=== PATIENT | female | born 1980 | race Hispanic/Latino ===

== ENCOUNTER 2017-04-24 04:35 | Emergency (ER) | payer OTHER ==
[2017-04-24 05:05] VITALS: BP 138/99
--- NOTE | 2017-04-24 05:44 | Emergency Department Report ---
HPI - General Chief Complaint: Pain General Time Seen by Provider: 04/24/17 05:38 - HPI HPI: Patient is a 37-year-old female who presents to ED's complaining of left-sided rib pain 2 weeks. Patient says about 2 weeks ago she tripped over her kids toys and fell and hit her rib/chest on the fireplace. Patient states since then she is some pain on her left rib underneath(region. Patient states pain is throbbing and aching in nature. Patient states pain is aggravated by stretching or raising left hand and worse with coughing. Patient states no mention of cycles due to bilateral tubal ligation and she also has nextplanon insert. She denies any bruising, difficulty breathing, fever, chills, nausea, vomiting ED Past Medical Hx - Past Medical History Previous Medical History?: Yes Hx Headaches / Migraines: Yes - Surgical History Past Surgical History?: Yes Additional Surgical History: x 2, tubal - Social History Smoking Status: Never Smoker Substance Use Type: None - Medications Home Medications: Home Medications Medication Instructions Recorded Confirmed Last Taken Type Vit No.78/Iron/FA 06/27/13 07/19/13 07/16/13 08:00 History [Prenatabs FA Tablet] Promethazine [Phenergan] 25 mg NE Q6HR PRN #20 supp.rect 06/29/13 07/19/13 Unknown Rx Fluticasone Propionate [Flonase] 1 spray INNOSTRIL BID 07/19/13 07/19/13 09:00 History Ondansetron [Zofran Odt] 4 mg PO Q6H PRN #20 tab.rapdis 07/19/13 Unknown Rx Potassium Chloride [K-Dur] 20 meq PO QDAY #4 tablet 07/19/13 Unknown Rx SUMAtriptan SUCCINATE [Imitrex] 1 tab PO BID PRN #9 tablet 01/30/16 Unknown Rx Baclofen [Lioresal] 10 mg PO TID #30 tab 04/24/17 Unknown Rx Methocarbamol [Robaxin TAB] 750 mg PO BID #20 tab 04/24/17 Unknown Rx ED Review of Systems ROS: Stated complaint: MUSCEL PAIN, Other details as noted in HPI Constitutional: denies: chills, fever Eyes: denies: eye pain, eye discharge, vision change ENT: denies: ear pain, throat pain Respiratory: denies: cough, shortness of breath, wheezing Cardiovascular: denies: chest pain, palpitations Endocrine: no symptoms reported Gastrointestinal: denies: abdominal pain, nausea, diarrhea Genitourinary: denies: urgency, dysuria, discharge Musculoskeletal: denies: back pain, joint swelling, arthralgia Skin: denies: rash, lesions Neurological: denies: headache, weakness, paresthesias Psychiatric: denies: anxiety, depression Hematological/Lymphatic: denies: easy bleeding, easy bruising Physical Exam - Physical Exam Vital Signs: Vital Signs 04/24/17 04:40 Temperature 98.6 F Pulse Rate 103 H Respiratory 18 Rate Blood Pressure 138/99 [Right] O2 Sat by Pulse 99 Oximetry Physical Exam: GENERAL: Alert and oriented x3, no apparent distress, Normal Gait, atraumatic. HEAD: Head is normocephalic and a-traumatic. NECK: Supple. Non edematous, . No lymphadenopathy or thyromegaly. No C-spine tenderness LUNGS: Symetrical with respiration, No wheezing, no rales or crackles, CTAB. No flail chest with inspiration or expiration, no ecchymoses no bruising seen HEART: S1, S2 present, regular rate and rhythm without murmur, no rubs, no gallops. Mild tenderness to palpation of the left side. ABDOMEN: No organomegaly was noted,Positive bowel sounds, soft, and non- distended. . Nontender to palpation on all Quadrants, NO CVA tenderness. SKIN: Warm and dry, No lesions, No ulceration or induration present. ED Course Vital Signs 04/24/17 04:40 Temperature 98.6 F Pulse Rate 103 H Respiratory 18 Rate Blood Pressure 138/99 [Right] O2 Sat by Pulse 99 Oximetry ED Medical Decision Making - Radiology Data Radiology results: report reviewed, image reviewed FINAL REPORT EXAM: XR RIBS UNILAT 2V LT HISTORY: fall/rib pain TECHNIQUE: Left ribs two views PRIORS: None. FINDINGS: There is no acute fracture seen. There is no focal left rib lesion identified. There is no left pneumothorax. IMPRESSION: There is no acute abnormality identified. Transcribed By: LORI Dictated By: MANSOOR GUEVARA MD Electronically Authenticated By: MANSOOR GUEVARA MD Signed Date/Time: 04/24/17 0552 - Medical Decision Making 37-year-old female presents with myalgia of the thorax ED course: Rib detail x-ray ordered. CBC results above Discussed with the patient findings from the x-ray the patient will go home on medication for muscle pain Discussed to follow up with her primary care physician. Discussed with the patient if any new or worsening symptoms to return to ED. Vital signs are normal patient is no acute distress. Critical care attestation.: If time is entered above; I have spent that time in minutes in the direct care of this critically ill patient, excluding procedure time. ED Disposition Clinical Impression: Myalgia Fall Qualifiers: Encounter type: initial encounter Qualified Code(s): W19.XXXA - Unspecified fall, initial encounter Disposition: TO HOME OR SELFCARE Is pt being admited?: No Does the pt Need Aspirin: No Condition: Stable Instructions: Trigger Point Pain (ED), Musculoskeletal Pain (ED), Heat Pack Application (ED) Prescriptions: Baclofen [Lioresal] 10 mg PO TID #30 tab Methocarbamol [Robaxin TAB] 750 mg PO BID #20 tab Referrals: PRIMARY CARE, [Primary Care Provider] - 3-5 Days [facility] [Outside] - 3-5 Days [facility] [Outside] - 3-5 Days [facility] [Outside] - 3-5 Days Forms: Work/School Release Form(ED) Time of Disposition: 06:11
--- NOTE | 2017-04-24 05:58 | XRay Report ---
FINAL REPORT EXAM: XR RIBS UNILAT 2V LT HISTORY: fall/rib pain TECHNIQUE: Left ribs two views PRIORS: None. FINDINGS: There is no acute fracture seen. There is no focal left rib lesion identified. There is no left pneumothorax. IMPRESSION: There is no acute abnormality identified.
== END 2017-04-24 06:27 | disposition home or self-care (01) ==
LOC: ED 04:35
DX: R07.81 Pleurodynia (principal); G43.909 Migraine, unspecified, not intractable, without status migrainosus; W01.198A Fall on same level from slipping, tripping and stumbling with subsequent striking against other object, initial encounter; Y93.89 Activity, other specified; Y99.8 Other external cause status; Y92.89 Other specified places as the place of occurrence of the external cause
CPT/HCPCS: 99283

== ENCOUNTER 2018-05-15 08:18 | Emergency (ER) | payer OTHER ==
[2018-05-15 08:46] VITALS: BP 128/80
[2018-05-15] MEDS ORDERED: NACL 0.9% 1000 ML 1,000 ML IV ONE (08:47)
[2018-05-15 08:58] LABS: Basophils # (Auto) 0.1 K/mm3 (0.0-0.1); Basophils % (Auto) 1.9 % (0.0-1.8); Eosinophils # (Auto) 0.4 K/mm3 (0.0-0.4); Eosinophils % (Auto) 8.4 % (0.0-4.3); Hematocrit 38.4 % (30.3-42.9); Hemoglobin 13.1 gm/dl (10.1-14.3); Lymphocytes # (Auto) 1.3 K/mm3 (1.2-5.4); Lymphocytes % (Auto) 27.9 % (13.4-35.0); Mean Corpuscular HGB Conc 34 % (30-34); Mean Corpuscular Hemoglobin 30 pg (28-32); Mean Corpuscular Volume 89 fl (79-97); Monocytes # (Auto) 0.4 K/mm3 (0.0-0.8); Platelet Count 439 K/mm3 (140-440); Red Blood Count 4.35 M/mm3 (3.65-5.03); Red Cell Distribution Width 13.5 % (13.2-15.2)
[2018-05-15 09:19] LABS: Alanine Aminotransferase 8 units/L (7-56); BUN/Creatinine Ratio 23; Blood Urea Nitrogen 14 mg/dL (7-17); Calcium 8.8 mg/dL (8.4-10.2); Hemolysis Index 6
[2018-05-15 09:34] LABS: Bacteria,Urine 1+ /HPF (Negative); Bilirubin,Urine NEG (Negative); Blood,Urine LG (Negative); Color,Urine Yellow (Yellow); Mucus,Urine FEW /HPF; Urobilinogen,Urine < 2.0 mg/dL (<2.0)
[2018-05-15 09:35] LABS: RBC,Urine > 182.0 /HPF (0.0-6.0)
[2018-05-15] MEDS ORDERED: MORPHINE IV ONE (10:18)
[2018-05-15] MEDS ORDERED: ZOFRAN IV ONE (10:18)
[2018-05-15] MEDS ORDERED: TORADOL IV ONE (10:18)
--- NOTE | 2018-05-15 11:02 | Emergency Department Report ---
ED Abdominal Pain HPI - General Chief Complaint: Abdominal Pain Stated Complaint: KIDNEYSTONES/INFECTION Time Seen by Provider: 05/15/18 10:06 Source: patient Mode of arrival: Ambulatory Limitations: No Limitations - History of Present Illness Initial Comments: This is a 38-year-old female nontoxic, well nourished in appearance, no acute signs of distress presents to the ED with c/o of nausea and vomiting and left flank pain 1 day. Patient describes vomiting as food content and yellow gastric acid. Patient describes flank pain as cramping and aching with level of 3/10 that radiates to left upper abdomen. Patient denies chest pain, short of breath, fever, chills, headache, stiff neck, numbness or tingling. Patient deneis any pelvic pain. Patient denies any diarrhea or constipation. Patient denies any vaginal bleeding or discharge. Patient denies any recent travels. Patient denies any allergies. MD Complaint: abdominal pain, flank pain -: days(s) (1) Location: L flank Radiation: LUQ Migration to: no migration Severity: mild Severity scale (0 -10): 3 Quality: cramping, aching Consistency: constant Improves With: nothing Worsens With: nothing Associated Symptoms: nausea, vomiting. denies: diarrhea, fever, chills, constipation, dysuria, hematemesis, hematochezia, melena, hematuria, anorexia, syncope - Related Data Home Medications Medication Instructions Recorded Confirmed Last Taken Vit,Calc78/Iron/Folic 06/27/13 07/19/13 07/16/13 08:00 [Prenatabs FA Tablet] Fluticasone Propionate [Flonase] 1 spray INNOSTRIL BID 07/19/13 07/19/13 09:00 Previous Rx's Medication Instructions Recorded Last Taken Type Promethazine [Phenergan] 25 mg [place] Q6HR PRN #20 supp.rect 06/29/13 Unknown Rx Ondansetron [Zofran Odt] 4 mg PO Q6H PRN #20 tab.rapdis 07/19/13 Unknown Rx Potassium Chloride [K-Dur] 20 meq PO QDAY #4 tablet 07/19/13 Unknown Rx SUMAtriptan SUCCINATE [Imitrex] 1 tab PO BID PRN #9 tablet 01/30/16 Unknown Rx Baclofen [Lioresal] 10 mg PO TID #30 tab 04/24/17 Unknown Rx Methocarbamol [Robaxin TAB] 750 mg PO BID #20 tab 04/24/17 Unknown Rx Acetaminophen/Codeine [Tylenol 1 tab PO Q6H PRN #6 tab 05/15/18 Unknown Rx /Codeine # 3 tab] Ibuprofen [Motrin] 600 mg PO Q8H PRN #30 tablet 05/15/18 Unknown Rx Sulfamethoxazole/Trimethoprim 1 each PO BID #14 tablet 05/15/18 Unknown Rx [Bactrim DS TAB] Allergies Allergy/AdvReac Type Severity Reaction Status Date / Time No Known Allergies Allergy Verified 07/19/13 13:59 ED Review of Systems ROS: Stated complaint: KIDNEYSTONES/INFECTION Other details as noted in HPI Constitutional: denies: chills, fever Eyes: denies: eye pain, eye discharge, vision change ENT: denies: ear pain, throat pain Respiratory: denies: cough, shortness of breath, wheezing Cardiovascular: denies: chest pain, palpitations Endocrine: no symptoms reported Gastrointestinal: abdominal pain, nausea, vomiting. denies: diarrhea, constipation Genitourinary: denies: urgency, dysuria, discharge Musculoskeletal: denies: back pain, joint swelling, arthralgia Skin: denies: rash, lesions Neurological: denies: headache, weakness, paresthesias Psychiatric: denies: anxiety, depression Hematological/Lymphatic: denies: easy bleeding, easy bruising ED Past Medical Hx - Past Medical History Previous Medical History?: Yes Hx Hypertension: Yes Hx Headaches / Migraines: Yes Hx Kidney Stones: Yes Hx Psychiatric Treatment: Yes (anxiety) - Surgical History Past Surgical History?: Yes Additional Surgical History: x 2, tubal - Social History Smoking Status: Current Some Day Smoker Substance Use Type: None - Medications Home Medications: Home Medications Medication Instructions Recorded Confirmed Last Taken Type Vit,Calc78/Iron/Folic 06/27/13 07/19/13 07/16/13 08:00 History [Prenatabs FA Tablet] Promethazine [Phenergan] 25 mg [place] Q6HR PRN #20 supp.rect 06/29/13 07/19/13 Unknown Rx Fluticasone Propionate [Flonase] 1 spray INNOSTRIL BID 07/19/13 07/19/13 09:00 History Ondansetron [Zofran Odt] 4 mg PO Q6H PRN #20 tab.rapdis 07/19/13 Unknown Rx Potassium Chloride [K-Dur] 20 meq PO QDAY #4 tablet 07/19/13 Unknown Rx SUMAtriptan SUCCINATE [Imitrex] 1 tab PO BID PRN #9 tablet 01/30/16 Unknown Rx Baclofen [Lioresal] 10 mg PO TID #30 tab 04/24/17 Unknown Rx Methocarbamol [Robaxin TAB] 750 mg PO BID #20 tab 04/24/17 Unknown Rx Acetaminophen/Codeine [Tylenol 1 tab PO Q6H PRN #6 tab 05/15/18 Unknown Rx /Codeine # 3 tab] Ibuprofen [Motrin] 600 mg PO Q8H PRN #30 tablet 05/15/18 Unknown Rx Sulfamethoxazole/Trimethoprim 1 each PO BID #14 tablet 05/15/18 Unknown Rx [Bactrim DS TAB] ED Physical Exam - General Limitations: No Limitations General appearance: alert, in no apparent distress - Head Head exam: Present: atraumatic, normocephalic - Eye Eye exam: Present: normal appearance Pupils: Present: normal accommodation - ENT ENT exam: Present: normal exam, mucous membranes moist - Neck Neck exam: Present: normal inspection, full ROM. Absent: tenderness, meningismus, lymphadenopathy - Respiratory Respiratory exam: Present: normal lung sounds bilaterally. Absent: respiratory distress, wheezes, rales, rhonchi, stridor, chest wall tenderness, accessory muscle use, decreased breath sounds, prolonged expiratory - Cardiovascular Cardiovascular Exam: Present: regular rate, normal rhythm, tachycardia, normal heart sounds. Absent: bradycardia, irregular rhythm, systolic murmur, diastolic murmur, rubs, gallop - GI/Abdominal GI/Abdominal exam: Present: soft, normal bowel sounds. Absent: distended, tenderness, guarding, rebound, rigid, diminished bowel sounds - Expanded GI/Abdominal Exam Expanded GI/Abdominal exam: Absent: psoas sign, obturator sign, heel tap sign, Waller's sign, Rovsing's sign, tenderness at Mcburney's Point, ascites - Rectal Rectal exam: Present: deferred - Extremities Exam Extremities exam: Present: normal inspection, full ROM, normal capillary refill. Absent: tenderness - Back Exam Back exam: Present: normal inspection, full ROM, tenderness (L flank). Absent: CVA tenderness (R), CVA tenderness (L), muscle spasm, paraspinal tenderness, vertebral tenderness, rash noted - Neurological Exam Neurological exam: Present: alert, oriented X3, normal gait - Psychiatric Psychiatric exam: Present: normal affect, normal mood - Skin Skin exam: Present: warm, dry, intact, normal color. Absent: rash ED Course Vital Signs 05/15/18 05/15/18 08:39 10:56 Temperature 98 F Pulse Rate 112 H Respiratory 16 16 Rate Blood Pressure 128/80 O2 Sat by Pulse 100 Oximetry - Reevaluation(s) Reevaluation #1: 05/15/18 11:01 Patient is speaking in full sentences with no signs of distress noted. ED Medical Decision Making - Lab Data Result diagrams: 05/15/18 08:49 05/15/18 08:49 - Medical Decision Making This is a 38-year-old female that presents with flank pain, n/v, and abdominal pain. Patient is stable and was examined by me. There is slight flank tenderness. Negative signs of symptoms of appendicitis. Labs obtained. UA obtained. CT scan ordered but patient refused,. Patient was educated about risk factors and further evaluation the patient refused to sign AMA form. I did give patient 1 L of normal saline, morphine and Toradol which patient states symptoms are progressive side. Patient stated that her family member drive the patient home after discharge. Vital signs are stable prior to discharge. Patient was notified of strict precautions of appendicitis symptoms and urinary stone obstruction and to return to the ED if symptoms occurs as soon as possible. Patient was also instructed to Follow-up with a primary care doctor in 3-5 days or if symptoms worsen and continue return to emergency room as soon as possible. At time of signing AMA form, the patient does not seem toxic or ill in appearance. No acute signs of distress noted. Patient agrees to treatment plan of care. No further questions noted by the patient. Critical care attestation.: If time is entered above; I have spent that time in minutes in the direct care of this critically ill patient, excluding procedure time. ED Disposition Clinical Impression: Flank pain Abdominal pain Qualifiers: Abdominal location: left upper quadrant Qualified Code(s): R10.12 - Left upper quadrant pain UTI (urinary tract infection) Qualifiers: Urinary tract infection type: site unspecified Hematuria presence: with hematuria Qualified Code(s): N39.0 - Urinary tract infection, site not specified Nausea & vomiting Qualifiers: Vomiting type: unspecified Vomiting Intractability: non-intractable Qualified Code(s): R11.2 - Nausea with vomiting, unspecified Disposition: - LEFT AGAINST MED ADVICE Is pt being admited?: No Does the pt Need Aspirin: No Condition: Undetermined Instructions: Acetaminophen/Codeine (By mouth), Abdominal Pain (ED) Additional Instructions: Follow-up with a primary care doctor in 3-5 days or if symptoms worsen and continue return to emergency room as soon as possible. Do not operate any machinery while taking Tylenol with codeine as this may cause drowsiness. Prescriptions: Acetaminophen/Codeine [Tylenol /Codeine # 3 tab] 1 tab PO Q6H PRN #6 tab PRN Reason: Pain , Severe (7-10) Ibuprofen [Motrin] 600 mg PO Q8H PRN #30 tablet PRN Reason: Pain Sulfamethoxazole/Trimethoprim [Bactrim DS TAB] 1 each PO BID #14 tablet Referrals: PRIMARY MD NATIVIDAD [Primary Care Provider] - 3-5 Days DANITZA MAXWELL MD [Staff Physician] - 3-5 Days [facility] [place] [facility] [place]Outside] - 3-5 Days [facility] [Outside] - 3-5 Days Forms: AMA Form
[2018-05-15 11:22] LABS: HCG Qualitative,Urine Negative (Negative)
--- NOTE | 2018-05-15 13:19 | Cat Scan Report ---
FINAL REPORT EXAM: CT ABDOMEN PELVIS W CON HISTORY: flank pain TECHNIQUE: CT of the abdomen and pelvis with IV contrast. Coronal and sagittal reconstructed imaging provided. PRIORS: None currently available. FINDINGS: ABDOMEN: Liver: Heterogeneous low attenuation. No distinct lesions. No suspicious enhancements. Gallbladder: Thick walled. Hyperemic. A distinct stones not clearly evident. Dilated left intrahepatic and common bile duct. Distinct ductal stone or lesion is not identified. Distal half of the stomach demonstrates mild wall prominence. No perforation. No stranding. Spleen, pancreas, and adrenals are unremarkable. Kidneys: Some cortical thinning or scarring to the right kidney. [id number] right hydronephrosis. Right UPJ stone measures 3.1 x 1.6 cm and the larger stone just inferior measures 7.7 x 4.7 mm. No other ureteral stones. Left kidney is unremarkable. There is no abdominal aortic aneurysm. No dissection. IVC is unremarkable. There is no periaortic or retroperitoneal adenopathy or mass. [id number] stool. No wall thickening or inflammatory changes. Terminal ileum is unremarkable. The appendix is not identified. There are no pericecal inflammatory changes. Small bowel loops are unremarkable. No obstructive pattern. No free air. No free fluid. Mesentery is unremarkable. Fat-containing umbilical hernia without strangulation. PELVIS: Limited CT images of the uterus are unremarkable. Bladder is unremarkable. No wall thickening. No stone. There is no pelvic mass or adenopathy. Inguinal regions are unremarkable. Bones: No suspicious osseous lesions on this limited examination of the skeleton. Metastatic disease better evaluated with bone scan. IMPRESSION: Heterogeneous liver may be related to hepatocellular disease or fatty infiltration. Gallbladder findings are suspicious for possible cholecystitis. Correlation with gallbladder ultrasound may be helpful if clinically indicated. Nonspecific thickening of the distal half of the stomach wall. Findings may represent a mild gastritis or gastric ulcer. No perforation. No abscess. Obstructing right UPJ stones. Cortical thinning and scarring to the right kidney identified.
== END 2018-05-15 12:16 | disposition left against medical advice (07) ==
LOC: ED 08:18
DX: N39.0 Urinary tract infection, site not specified (principal); I10 Essential (primary) hypertension; G43.909 Migraine, unspecified, not intractable, without status migrainosus; F17.200 Nicotine dependence, unspecified, uncomplicated
CPT/HCPCS: 36415; 74177; 80053; 81001; 81025; 85025; 96361; 96374; 96375; 99284; J1885; J2270; J2405; J7030; Q9967

== ENCOUNTER 2019-06-25 08:42 | Emergency (ER) | payer SELFPAY ==
[2019-06-25 08:47] VITALS: BP 162/96
--- NOTE | 2019-06-25 09:19 | Emergency Department Report ---
- General Chief complaint: Pain General Stated complaint: SHOULDER PAIN/RASH Time Seen by Provider: 06/25/19 09:07 Source: patient Mode of arrival: Ambulatory Limitations: No Limitations - History of Present Illness Initial comments: Patient is a 39-year-old female presents to emergency room with complaints of a rash to the left shoulder blade that began 2 days ago. Patient describes the pain as a tingling and burning sensation, "pins and needles". She states she also feels like she is having muscle spasms in the left shoulder blade region. She states that she has been using warm compresses over the area. she denies any fall or injury, numbness, weakness, or any other symptoms. Denies anyone else with a rash. States she has a past medical history of migraines and takes gabapentin and baclofen. Denies any allergies medications. States she is currently on her menstrual cycle. - Related Data Home Medications Medication Instructions Recorded Confirmed Last Taken Vit,Calc78/Iron/Folic 06/27/13 07/19/13 07/16/13 08:00 [Prenatabs FA Tablet] Fluticasone Propionate [Flonase] 1 spray INNOSTRIL BID 07/19/13 07/19/13 07/19/13 09:00 Previous Rx's Medication Instructions Recorded Last Taken Type Promethazine [Phenergan] 25 mg NE Q6HR PRN #20 supp.rect 06/29/13 Unknown Rx Ondansetron [Zofran Odt] 4 mg PO Q6H PRN #20 tab.rapdis 07/19/13 Unknown Rx Potassium Chloride [K-Dur] 20 meq PO QDAY #4 tablet 07/19/13 Unknown Rx SUMAtriptan SUCCINATE [Imitrex] 1 tab PO BID PRN #9 tablet 01/30/16 Unknown Rx Baclofen [Lioresal] 10 mg PO TID #30 tab 04/24/17 Unknown Rx methOCARBAMOL [Robaxin TAB] 750 mg PO BID #20 tab 04/24/17 Unknown Rx Acetaminophen/Codeine [Tylenol 1 tab PO Q6H PRN #6 tab 05/15/18 Unknown Rx /Codeine # 3 tab] Ibuprofen [Motrin] 600 mg PO Q8H PRN #30 tablet 05/15/18 Unknown Rx Sulfamethoxazole/Trimethoprim 1 each PO BID #14 tablet 08/26/18 Unknown Rx [Bactrim DS TAB] Acetaminophen/Codeine [Tylenol 1 tab PO Q6HR PRN #12 tablet 06/25/19 Unknown Rx /Codeine # 3 tab] Lidocaine [Lidocaine GEL] 1 applicatio TP BID #1 gel..gram. 06/25/19 Unknown Rx Valacyclovir HCl [Valtrex] 1,000 mg PO TID 7 Days #21 tablet 06/25/19 Unknown Rx predniSONE [Deltasone] 40 mg PO QDAY 5 Days #10 tab 06/25/19 Unknown Rx Allergies Allergy/AdvReac Type Severity Reaction Status Date / Time No Known Allergies Allergy Verified 07/19/13 13:59 Abscess Boil HPI - HPI Chief Complaint: Pain General Stated Complaint: SHOULDER PAIN/RASH Time Seen by Provider: 06/25/19 09:07 Home Medications: Home Medications Medication Instructions Recorded Confirmed Last Taken Vit,Calc78/Iron/Folic 06/27/13 07/19/13 07/16/13 08:00 [Prenatabs FA Tablet] Fluticasone Propionate [Flonase] 1 spray INNOSTRIL BID 07/19/13 07/19/13 07/19/13 09:00 Previous Rx's Medication Instructions Recorded Last Taken Type Promethazine [Phenergan] 25 mg NE Q6HR PRN #20 supp.rect 06/29/13 Unknown Rx Ondansetron [Zofran Odt] 4 mg PO Q6H PRN #20 tab.rapdis 07/19/13 Unknown Rx Potassium Chloride [K-Dur] 20 meq PO QDAY #4 tablet 07/19/13 Unknown Rx SUMAtriptan SUCCINATE [Imitrex] 1 tab PO BID PRN #9 tablet 01/30/16 Unknown Rx Baclofen [Lioresal] 10 mg PO TID #30 tab 04/24/17 Unknown Rx methOCARBAMOL [Robaxin TAB] 750 mg PO BID #20 tab 04/24/17 Unknown Rx Acetaminophen/Codeine [Tylenol 1 tab PO Q6H PRN #6 tab 05/15/18 Unknown Rx /Codeine # 3 tab] Ibuprofen [Motrin] 600 mg PO Q8H PRN #30 tablet 05/15/18 Unknown Rx Sulfamethoxazole/Trimethoprim 1 each PO BID #14 tablet 05/15/18 Unknown Rx [Bactrim DS TAB] Acetaminophen/Codeine [Tylenol 1 tab PO Q6HR PRN #12 tablet 06/25/19 Unknown Rx /Codeine # 3 tab] Lidocaine [Lidocaine GEL] 1 applicatio TP BID #1 gel..gram. 06/25/19 Unknown Rx Valacyclovir HCl [Valtrex] 1,000 mg PO TID 7 Days #21 tablet 06/25/19 Unknown Rx predniSONE [Deltasone] 40 mg PO QDAY 5 Days #10 tab 06/25/19 Unknown Rx Allergies/Adverse Reactions: Allergies Allergy/AdvReac Type Severity Reaction Status Date / Time No Known Allergies Allergy Verified 07/19/13 13:59 ED Review of Systems ROS: Stated complaint: SHOULDER PAIN/RASH Other details as noted in HPI Comment: All other systems reviewed and negative ED Past Medical Hx - Past Medical History Hx Hypertension: Yes Hx Headaches / Migraines: Yes Hx Kidney Stones: Yes Hx Psychiatric Treatment: Yes (anxiety) - Surgical History Additional Surgical History: x 2, tubal - Social History Smoking Status: Current Every Day Smoker Substance Use Type: None - Medications Home Medications: Home Medications Medication Instructions Recorded Confirmed Last Taken Type Vit,Calc78/Iron/Folic 06/27/13 07/19/13 07/16/13 08:00 History [Prenatabs FA Tablet] Promethazine [Phenergan] 25 mg NE Q6HR PRN #20 supp.rect 06/29/13 07/19/13 Unknown Rx Fluticasone Propionate [Flonase] 1 spray INNOSTRIL BID 07/19/13 07/19/13 07/19/13 09:00 History Ondansetron [Zofran Odt] 4 mg PO Q6H PRN #20 tab.rapdis 07/19/13 Unknown Rx Potassium Chloride [K-Dur] 20 meq PO QDAY #4 tablet 07/19/13 Unknown Rx SUMAtriptan SUCCINATE [Imitrex] 1 tab PO BID PRN #9 tablet 01/30/16 Unknown Rx Baclofen [Lioresal] 10 mg PO TID #30 tab 04/24/17 Unknown Rx methOCARBAMOL [Robaxin TAB] 750 mg PO BID #20 tab 04/24/17 Unknown Rx Acetaminophen/Codeine [Tylenol 1 tab PO Q6H PRN #6 tab 05/15/18 Unknown Rx /Codeine # 3 tab] Ibuprofen [Motrin] 600 mg PO Q8H PRN #30 tablet 05/15/18 Unknown Rx Sulfamethoxazole/Trimethoprim 1 each PO BID #14 tablet 05/15/18 Unknown Rx [Bactrim DS TAB] Acetaminophen/Codeine [Tylenol 1 tab PO Q6HR PRN #12 tablet 06/25/19 Unknown Rx /Codeine # 3 tab] Lidocaine [Lidocaine GEL] 1 applicatio TP BID #1 gel..gram. 06/25/19 Unknown Rx Valacyclovir HCl [Valtrex] 1,000 mg PO TID 7 Days #21 tablet 06/25/19 Unknown Rx predniSONE [Deltasone] 40 mg PO QDAY 5 Days #10 tab 06/25/19 Unknown Rx ED Physical Exam - General Limitations: No Limitations General appearance: alert, in no apparent distress - Head Head exam: Present: atraumatic, normocephalic - Eye Eye exam: Present: normal appearance - ENT ENT exam: Present: mucous membranes moist - Respiratory Respiratory exam: Present: normal lung sounds bilaterally. Absent: respiratory distress, wheezes, rales, rhonchi, stridor, chest wall tenderness, accessory muscle use, decreased breath sounds, prolonged expiratory - Cardiovascular Cardiovascular Exam: Present: regular rate, normal rhythm, normal heart sounds. Absent: systolic murmur, diastolic murmur, rubs, gallop - Neurological Exam Neurological exam: Present: alert, oriented X3 - Psychiatric Psychiatric exam: Present: normal affect, normal mood - Skin Skin exam: Present: warm, dry, rash (small vesicles in dermatomal distribution directly inferior to the left scapula) ED Course Vital Signs 06/25/19 06/25/19 08:43 09:31 Temperature 98.4 F Pulse Rate 115 H 92 H Respiratory 15 16 Rate Blood Pressure 162/96 O2 Sat by Pulse 98 99 Oximetry ED Medical Decision Making - Lab Data Vital Signs 06/25/19 06/25/19 08:43 09:31 Temperature 98.4 F Pulse Rate 115 H 92 H Respiratory 15 16 Rate Blood Pressure 162/96 O2 Sat by Pulse 98 99 Oximetry - Medical Decision Making Patient is a 39-year-old female presents to emergency room with complaints of a rash to the left shoulder blade that began 2 days ago. Patient describes the pain as a tingling and burning sensation, "pins and needles". She states she also feels like she is having muscle spasms in the left shoulder blade region. She states that she has been using warm compresses over the area. she denies any fall or injury, numbness, weakness, or any other symptoms. Denies anyone else with a rash. States she has a past medical history of migraines and takes gabapentin and baclofen. Denies any allergies medications. States she is currently on her menstrual cycle. initial vitals in triage with mild tachycardia, which improved upon repeat. on examination: small vesicles in dermatomal distribution directly inferior to the left scapula. examination consistent with shingles. Patient given prescription for acyclovir, prednisone, lidocaine ointment, pain medication. Advised patient please take medication as prescribed. Do not drive or operate heavy machinery while taking pain medication. Please follow-up with a primary care doctor in the next 2-3 days. please discuss with a primary care doctor about the shingles vaccine. Return to the emergency room for any new or worsening symptoms. pt asked for refills of her gabapentin and baclofen advised pt that she needed to see a primary care provider for refill of these medications, also advised pt that she could not take baclofen and the pain medication together. pt verbalized understanding. pt given list of community resources. Critical care attestation.: If time is entered above; I have spent that time in minutes in the direct care of this critically ill patient, excluding procedure time. ED Disposition Clinical Impression: Herpes zoster Qualifiers: Herpes zoster complications: without complications Qualified Code(s): B02.9 - Zoster without complications Disposition: DC-01 TO HOME OR SELFCARE Is pt being admited?: No Does the pt Need Aspirin: No Condition: Stable Instructions: Herpes Zoster (ED) Additional Instructions: please take medication as prescribed. Do not drive or operate heavy machinery while taking pain medication. Please follow-up with a primary care doctor in the next 2-3 days. please discuss with a primary care doctor about the shingles vaccine. Return to the emergency room for any new or worsening symptoms. Prescriptions: predniSONE [Deltasone] 40 mg PO QDAY 5 Days #10 tab Lidocaine [Lidocaine GEL] 1 applicatio TP BID #1 gel..gram. Acetaminophen/Codeine [Tylenol /Codeine # 3 tab] 1 tab PO Q6HR PRN #12 tablet PRN Reason: Pain , Severe (7-10) Valacyclovir HCl [Valtrex] 1,000 mg PO TID 7 Days #21 tablet Referrals: [facility] [Provider Group] - 2-3 Days [facility] [Outside] - 2-[address] [facility] [Outside] - 2-3 Days Time of Disposition: 09:19 Print Language: MONTSERRATIAN
== END 2019-06-25 09:32 | disposition home or self-care (01) ==
LOC: ED 08:42
DX: B02.9 Zoster without complications (principal); I10 Essential (primary) hypertension; G43.909 Migraine, unspecified, not intractable, without status migrainosus; F41.9 Anxiety disorder, unspecified; F17.200 Nicotine dependence, unspecified, uncomplicated; Z79.899 Other long term (current) drug therapy
CPT/HCPCS: 99282